=== PATIENT | female | born 1950 | race Native Hawaiian/Other Pacific Islander ===

== ENCOUNTER 2017-05-23 21:58 | Observation (INO) | payer SELFPAY ==
[2017-05-23 22:19] VITALS: RESP 18; BMI 29.2
--- NOTE | 2017-05-23 23:11 | ED PDOC ---
Arrival/HPI <Vishnu Colmean - Last Filed: 05/24/17 00:01> - General Historian: Patient <Florencia Rodas - Last Filed: 05/24/17 00:34> - General Chief Complaint: Dizziness/Lightheaded Time Seen by Provider: 05/23/17 22:37 - History of Present Illness Narrative History of Present Illness (Text): 05/23/17 22:52 66yo female with PMhx of hypertension biba for syncopal episode. Patient notes that she suddenly became dizzy while trying to seat, and then had a syncopal episode. She notes that she was dizzy herself, with no spinning sensation. She notes that she did not hit her head anywhere. The family member by the bedside states they caught and held her, then she gently slid to a seating position. + Nausea. Patient denies a previous history. She notes that she recently came to the [facility] last week from [facility]. She denies any focal weakness, headache, visual changes, chest pain, SOB, vomiting, recent URI symptoms. tinnitus, diaphoresis, LE edema, calf pain, any other complaint. (Florencia Rodas A) Past Medical History - Provider Review Nursing Documentation Reviewed: Yes - Cardiac Hx Hypertension: Yes - Pulmonary Hx Respiratory Disorders: No - Neurological Hx Neurological Disorder: No - HEENT Hx HEENT Disorder: No - Renal Hx Renal Disorder: No - Endocrine/Metabolic Hx Endocrine Disorders: No - Hematological/Oncological Hx Blood Disorders: No - Integumentary Hx Dermatological Disorder: No - Musculoskeletal/Rheumatological Hx Musculoskeletal Disorders: No - Gastrointestinal Hx Gastrointestinal Disorders: No - Genitourinary/Gynecological Hx Genitourinary Disorders: No - Psychiatric Hx Psychophysiologic Disorder: No Hx Substance Use: No <Florencia Rodas - Last Filed: 05/24/17 00:34> Family/Social History - Physician Review Nursing Documentation Reviewed: Yes Family/Social History: Unknown Family HX Smoking Status: Never Smoked Hx Alcohol Use: No Hx Substance Use: No <Florencia Rodas - Last Filed: 05/24/17 00:34> Allergies/Home Meds <Vishnu Coleman - Last Filed: 05/24/17 00:01> <Florencia Rodas A - Last Filed: 05/24/17 00:34> Allergies/Adverse Reactions: Allergies Penicillins Allergy (Verified 05/23/17 22:19) RASH Home Medications: Home Meds Medication Instructions Recorded Confirmed NIFEdipine ER [Nifedipine ER] 60 mg PO DAILY 05/23/17 05/23/17 Terazosin [Hytrin] 5 mg PO DAILY 05/23/17 05/23/17 Review of Systems - Physician Review All systems were reviewed & negative as marked: Yes - Review of Systems Constitutional: Normal Eyes: Normal ENT: Normal Respiratory: Normal Cardiovascular: Normal Gastrointestinal: Normal Genitourinary Female: Normal Musculoskeletal: Normal Skin: Normal Neurological: absent: Headache, Dizziness (syncope), Focal Weakness, Speech Changes, Facial Droop Endocrine: Normal Hemo/Lymphatic: Normal Psychiatric: Normal <Diru,Happiness A - Last Filed: 05/24/17 00:34> Physical Exam Vital Signs Reviewed: Yes Temperature: Afebrile Blood Pressure: Normal Pulse: Regular Respiratory Rate: Normal Appearance: Positive for: Well-Appearing, Non-Toxic, Comfortable Pain Distress: None Mental Status: Positive for: Alert and Oriented X 3 - Systems Exam Head: Present: Atraumatic, Normocephalic Pupils: Present: PERRL Extroacular Muscles: Present: EOMI Conjunctiva: Present: Normal Mouth: Present: Moist Mucous Membranes Neck: Present: Normal Range of Motion Respiratory/Chest: Present: Clear to Auscultation, Good Air Exchange. No: Respiratory Distress, Accessory Muscle Use Cardiovascular: Present: Regular Rate and Rhythm, Normal S1, S2. No: Murmurs Abdomen: Present: Normal Bowel Sounds. No: Tenderness, Distention, Peritoneal Signs Back: Present: Normal Inspection Upper Extremity: Present: Normal Inspection. No: Cyanosis, Edema Lower Extremity: Present: Normal Inspection. No: Edema Neurological: Present: GCS=15, CN II-XII Intact, Speech Normal, Motor Func Grossly Intact, Normal Sensory Function, Normal Cerebellar Funct, Memory Normal , Normal 2Pt Descrimination, Other (No focal neurological deficit) Skin: Present: Warm, Dry, Normal Color. No: Rashes Psychiatric: Present: Alert, Oriented x 3, Normal Insight, Normal Concentration <Diru,Happiness A - Last Filed: 05/24/17 00:34> Vital Signs Temp Pulse Resp BP Pulse Ox 05/23/17 22:18 97.4 F L 98 H 18 128/60 98 Medical Decision Making <Vishnu Coleman - Last Filed: 05/24/17 00:01> <Florencia Rodas - Last Filed: 05/24/17 00:34> ED Course and Treatment: 05/23/17 23:46 PT in ED for stated history. she had no focal neurological deficit in ED. Hypokalmeia was noted with no significant EKG changes. Potassium was repleted in ED. Mild Cr elevation was noted, likely secondary to hydration. EKG sinus luis eduardo with prolonged QT @58bpm CXR Pending Head Pending Case was DW Dr. Montoya while he was in ED and he accepted pt for admission to r/o possible cardiogenic cause. Result and plan was DW both pt and her family members and they agreed. 05/24/17 00:33 IMPRESSION: 1. Nonspecific white matter changes. Acute infarction may be CT occult within first 24 hours. If a focal deficit persists, consider followup CT or MRI for further evaluation. 2. Sinus disease. 3. Incidental/non-acute findings are described above. (Florencia Rodas) - Lab Interpretations Lab Results: 05/23/17 22:34 05/23/17 22:33 Lab Results 05/23/17 22:34: WBC 12.6 H, RBC 4.46, Hgb 12.7, Hct 37.4, MCV 83.9, MCH 28.5, MCHC 34.0, RDW 12.8, Plt Count 189, MPV 9.9, Gran % 88.8 H, Lymph % (Auto) 6.0 L , [place] % (Auto) 5.1, Eos % (Auto) 0.0 L, Baso % (Auto) 0.1, Gran # 11.21 H, Lymph # 0.8 L, [place] # 0.7 H, Eos # 0.0, Baso # 0.01 05/23/17 22:33: Sodium 141, Potassium 2.9 L*, Chloride 105, Carbon Dioxide 24, Anion Gap 15, BUN 25 H, Creatinine 1.5 H, Est GFR ( Amer) 42, Est GFR ( Non-Af Amer) 35, Random Glucose 172 H, Calcium 9.6, Magnesium 2.0, Total Bilirubin 0.4, AST 21, ALT 26, Alkaline Phosphatase 58, Lactate Dehydrogenase 401, Total Creatine Kinase 42, Troponin I < 0.01, Total Protein 7.8, Albumin 4.0 , Globulin 3.8, Albumin/Globulin Ratio 1.1 05/23/17 22:33: PT 12.3, INR 1.13 H, APTT 29.8 - RAD Interpretation Radiology Orders: 05/23/17 22:37 CHEST PORTABLE [RAD] Stat 05/23/17 22:38 HEAD W/O CONTRAST [CT] Stat - Medication Orders Current Medication Orders: Potassium Chloride (Potassium Chloride 20 Meq/100 Ml) 20 meq in 100 mls @ 50 mls/hr IVPB Q2H STA Stop: 05/24/17 01:21 Last Admin: 05/24/17 00:12 Dose: 50 mls/hr eMAR Start Stop Document 05/24/17 00:12 ANNA (Rec: 05/24/17 00:12 ANNA [id number]) Intravenous Solution Start Date 05/24/17 Start Time 00:12 End Date 05/24/17 End time 02:12 Total Infusion Time 120 Discontinued Medications Potassium Chloride (K-Dur 20 Meq Er Tab) 40 meq PO STAT STA Stop: 05/23/17 23:23 Last Admin: 05/24/17 00:12 Dose: 40 meq - PA / FIGURE CLERK / Resident Statement / has reviewed & agrees with the documentation as recorded. KASI has examined the patient and agrees with the treatment plan. <Vishnu Coleman - Last Filed: 05/24/17 00:01> Disposition/Present on Arrival <Vishnu Coleman - Last Filed: 05/24/17 00:01> - Present on Arrival Any Indicators Present on Arrival: No History of DVT/PE: No History of Uncontrolled Diabetes: No Urinary Catheter: No History of Decub. Ulcer: No History Surgical Site Infection Following: None - Disposition Have Diagnosis and Disposition been Completed?: Yes Disposition Time: 23:40 <Florencia Rodas - Last Filed: 05/24/17 00:34> - Disposition Diagnosis: Syncope, Hypokalemia, Dehydration Disposition: HOSPITALIZED Patient Problems: Current Active Problems Problem Status Onset Dehydration Acute Hypokalemia Acute Syncope Acute Condition: FAIR
[2017-05-23 23:22] LABS: ALB/GLOB RATIO 1.1 (1.1-1.8); ALKALINE PHOSPHATASE 58 U/L (38-126); ALT/SGPT 26 U/L (7-56); AST/SGOT 21 U/L (14-36); BILIRUBIN,TOTAL 0.4 mg/dL (0.2-1.3); BLOOD UREA NITROGEN 25 mg/dL (7-21); CALCIUM 9.6 mg/dL (8.4-10.5); CARBON DIOXIDE 24 mmol/L (21-33); CHLORIDE 105 mmol/L (98-107); GFR AFRICAN-AMERICAN 42; GLUCOSE,RANDOM 172 mg/dL (70-110); POTASSIUM 2.9 mmol/L (3.6-5.0); SODIUM 141 mmol/L (132-148); TOTAL PROTEIN 7.8 g/dL (5.8-8.3)
[2017-05-23] MEDS ORDERED: Potassium Chloride 20 mEq ER Tab PO STA (23:22)
[2017-05-23 23:26] LABS: TROPONIN I < 0.01 ng/mL
[2017-05-23 23:50] LABS: INR 1.13 (0.93-1.08); PARTIAL THROMBOPLASTIN TIME 29.8 Seconds (25.1-36.5)
[2017-05-24 00:05] LABS: BASO # 0.01 K/mm3 (0.0-2.0); BASO % 0.1 % (0.0-3.0); GRAN # 11.21 (1.4-6.5); GRAN % 88.8 % (50.0-68.0); HEMATOCRIT 37.4 % (36.0-48.0); LYMPH # 0.8 (1.2-3.4); MEAN CELL VOLUME 83.9 fl (80.0-105.0); MEAN CORPUSCULAR HEMOGLOBIN 28.5 pg (25.0-35.0); MEAN PLATELET VOLUME 9.9 fl (7.0-11.0); MONO # 0.7 (0.1-0.6); MONO % 5.1 % (1.0-6.0); RED CELL DISTRIBUTION WIDTH 12.8 % (11.5-14.5); WHITE BLOOD COUNT 12.6 10^3/ul (4.5-11.0)
--- NOTE | 2017-05-24 00:08 | CT ---
EXAM: CT Head Without Intravenous Contrast CLINICAL HISTORY: 66 years old, female; Signs and symptoms; Syncope and collapse TECHNIQUE: Axial computed tomography images of the head/brain without intravenous contrast. All CT scans at this facility use one or more dose reduction techniques, viz.: automated exposure control; ma/kV adjustment per patient size (including targeted exams where dose is matched to indication; i.e. head); or iterative reconstruction technique. COMPARISON: No relevant prior studies available. FINDINGS: Brain: Mild atrophy. No intracranial hemorrhage. No mass. Several scattered foci of decreased attenuation within periventricular/subcortical white matter. Probable chronic lacunar infarcts within basal ganglia. No definite edema. Ventricles: No hydrocephalus. Bones/joints: No acute fracture. Soft tissues: Unremarkable. Sinuses: Small air-fluid levels within maxillary sinuses. Mucus within RIGHT sphenoid sinus. Mastoid air cells: No mastoid effusion. Orbits: Unremarkable as visualized. IMPRESSION: 1. Nonspecific white matter changes. Acute infarction may be CT occult within first 24 hours. If a focal deficit persists, consider followup CT or MRI for further evaluation. 2. Sinus disease. 3. Incidental/non-acute findings are described above.
--- NOTE | 2017-05-24 00:45 | CP.PCM.HP ---
History of Present Illness - History of Present Illness History of Present Illness: CC: dizziness Subjective: HPI: Patient is a 66 year old female with a past medical history of hypertension who presents to the emergency department via EMS for evaluation and treatment of dizziness which began today after taking one dose of procardia in the morning and one dose of terazosin in the evening. Patients family is at bedside. Patient is visiting from the [facility]. She normally takes lopressor to control her BP however she was changed to the procardia/terazosin regimen today by her new pmd. As per family, the patient began feeling dizzy in the PM and was gently placed on the floor. Family and patient deny LOC, head trauma, or any shaking of extremities/ biting of the tongue. Denies recent sick contacts. Patient denies intractable headache, fever, chills, blurry vision, ringing in the ears, chest pain, shortness of breath, abdominal pain, nausea, vomiting, diarrhea, constipation, and urinary symptoms. ROS: 12 point review of systems negative except as indicated in HPI PMHx: HTN PSHx: None Allergies- penicillin- develops pruritis Family Hx: noncontributory Social Hx: denies ETOH use, tobacco use, illicit drug use Medications: Please see medication reconciliation PMD during visit to Priya: Dr. Chaudhary in [facility] during visit to Priya: [facility] in [place] Physical Examination: - Constitutional Appears: Non-toxic, No Acute Distress - Head Exam Head Exam: atraumatic, normocephalic - Eye Exam Eye Exam: Normal appearance, PERRL. absent: Scleral icterus - ENT Exam ENT Exam: Mucous Membranes Moist - Neck Exam Neck exam: Normal Inspection - Respiratory Exam Respiratory Exam: Normal Breathing Pattern - Cardiovascular Exam Cardiovascular Exam: +S1, +S2. absent: Gallop, JVD - GI/Abdominal Exam GI & Abdominal Exam: Normal Bowel Sounds, absent: Distended, Guarding, Pulsatile Mass, Rebound, Rigid - Extremities Exam Extremities exam: Negative for: calf tenderness - Neurological Exam Neurological exam: Patient is awake, alert, responds to verbal stimuli, answers questions appropriately, follows commands, and moves extremities past midline - Psychiatric Exam Psychiatric exam: Normal Affect, Normal Mood - Skin Skin Exam: warm and dry Assessment and Plan: Patient is a 66 year old female with a past medical history of hypertension who is admitted for evaluation and treatment of dizziness. Dizziness - likely secondary to new BP medications- will hold for now and monitor clinical symptoms closely - EKG reviewed and appreciated- sinus luis eduardo, HR 58 bpm, QTc 492, nonspecific ST abnormality - head CT- Nonspecific white matter changes; Small air-fluid levels within maxillary sinuses. Mucus within right sphenoid sinus. - high risk fall precautions - antivert prn - no prn zofran at this time due to prolonged QTc SIRS Criteria Met - not sepsis- no source (WBC elevated- likely reactive and HR > 90) - blood cultures x 2 pending - UA pending - IVF NS @ 100 [place] - creatinine and Bun reviewed, trended, and appreciated - avoid nephrotoxins - continue IVF NS @ 100 - consider nephrology consult pending patients clinical course Electrolyte Abnormality - hypokalemia- repleted by ED, mag WNL, and monitor closely via CMP - mag level ordered for AM Hx of Htn - hold home BP medications - hydralazine 5mg IV q6 prn SBP > 180, holding parameters- do not administer if HR is > 100 bp Prophylaxis - DVT ppx- subq heparin as per bairon score - GI ppx- famotidine Patient case discussed with and plan approved by attending physician. 05/24/17 00:26 Present on Admission - Present on Admission Any Indicators Present on Admission: No Past Patient History - Past Social History Smoking Status: Never Smoked - CARDIAC Hx Hypertension: Yes - PULMONARY Hx Respiratory Disorders: No - NEUROLOGICAL Hx Neurological Disorder: No - HEENT Hx HEENT Problems: No - RENAL Hx Chronic Kidney Disease: No - ENDOCRINE/METABOLIC Hx Endocrine Disorders: No - HEMATOLOGICAL/ONCOLOGICAL Hx Blood Disorders: No - INTEGUMENTARY Hx Dermatological Problems: No - MUSCULOSKELETAL/RHEUMATOLOGICAL Hx Musculoskeletal Disorders: No - GASTROINTESTINAL Hx Gastrointestinal Disorders: No - GENITOURINARY/GYNECOLOGICAL Hx Genitourinary Disorders: No - PSYCHIATRIC Hx Psychophysiologic Disorder: No Hx Substance Use: No - SURGICAL HISTORY Hx Surgeries: No Meds Allergies/Adverse Reactions: Allergies Allergy/AdvReac Type Severity Reaction Status Date / Time Penicillins Allergy RASH Verified 05/23/17 22:19 Results - Vital Signs Recent Vital Signs: Last Vital Signs Temp 97.4 F L 05/23/17 22:18 Pulse 98 H 05/23/17 22:18 Resp 18 05/23/17 22:18 BP 128/60 05/23/17 22:18 Pulse Ox 98 05/23/17 22:18 - Labs Result Diagrams: 05/23/17 22:34 05/23/17 22:33
[2017-05-24] MEDS ORDERED: Sodium Chloride 0.9% 1,000 ML IV SCH (01:00)
[2017-05-24 06:48] VITALS: BP 120/64; PULSE 77; TEMP 97.5; O2SAT 97
[2017-05-24 09:23] LABS: BASO # 0.01 K/mm3 (0.0-2.0); BASO % 0.1 % (0.0-3.0); EOS % 0.3 % (1.5-5.0); GRAN # 6.81 (1.4-6.5); GRAN % 78.3 % (50.0-68.0); LYMPH # 1.5 (1.2-3.4); LYMPH % 16.9 % (22.0-35.0); MEAN CELL VOLUME 85.4 fl (80.0-105.0); MEAN CORPUSCULAR HEMOGLOBIN 28.8 pg (25.0-35.0); MEAN CORPUSCULAR HGB CONC 33.7 g/dl (31.0-37.0); MEAN PLATELET VOLUME 10.6 fl (7.0-11.0); MONO # 0.4 (0.1-0.6); MONO % 4.4 % (1.0-6.0); RED CELL DISTRIBUTION WIDTH 12.9 % (11.5-14.5); WHITE BLOOD COUNT 8.7 10^3/ul (4.5-11.0)
--- NOTE | 2017-05-24 09:30 | RAD ---
HISTORY: admission COMPARISON: No prior. FINDINGS: LUNGS: No active pulmonary disease. PLEURA: No significant pleural effusion identified, no pneumothorax apparent. CARDIOVASCULAR: Heart appears borderline/ mildly enlarged. Aorta is ectatic and uncoiled. OSSEOUS STRUCTURES: Very minor degenerate changes both acromioclavicular joints VISUALIZED UPPER ABDOMEN: Normal. OTHER FINDINGS: None. IMPRESSION: No acute infiltrates.
[2017-05-24 09:48] LABS: BILIRUBIN,TOTAL 0.6 mg/dL (0.2-1.3); MAGNESIUM 2.1 mg/dL (1.7-2.2); POTASSIUM 3.7 mmol/L (3.6-5.0); TOTAL PROTEIN 7.1 g/dL (5.8-8.3)
--- NOTE | 2017-05-24 10:44 | CARD ---
APPROVED REPORT EKG Measurement Heart [id number] <Conclusion> Sinus bradycardia Nonspecific ST abnormality Prolonged QT Abnormal ECG
--- NOTE | 2017-05-24 13:59 | CP.PCM.DIS ---
<HailyAashishn - Last Filed: 05/24/17 16:15> Provider - Provider Date of Admission: 05/23/17 23:59 Attending physician: Radha Petit MD Primary care physician: NO PRIMARY CARE PROVIDER Time Spent in preparation of Discharge (in minutes): 45 Hospital Course - Lab Results Lab Results: Most Recent Lab Values WBC 8.7 10^3/ul (4.5-11.0) D 05/24/17 08:10 RBC 4.45 10^6/uL (3.5-6.1) 05/24/17 08:10 Hgb 12.8 g/dL (12.0-16.0) 05/24/17 08:10 Hct 38.0 % (36.0-48.0) 05/24/17 08:10 MCV 85.4 fl (80.0-105.0) 05/24/17 08:10 MCH 28.8 pg (25.0-35.0) 05/24/17 08:10 MCHC 33.7 g/dl (31.0-37.0) 05/24/17 08:10 RDW 12.9 % (11.5-14.5) 05/24/17 08:10 Plt Count 146 10^3/uL (120.0-450.0) 05/24/17 08:10 MPV 10.6 fl (7.0-11.0) 05/24/17 08:10 Gran % 78.3 % (50.0-68.0) H 05/24/17 08:10 Lymph % (Auto) 16.9 % (22.0-35.0) L 05/24/17 08:10 [place] % (Auto) 4.4 % (1.0-6.0) 05/24/17 08:10 Eos % (Auto) 0.3 % (1.5-5.0) L 05/24/17 08:10 Baso % (Auto) 0.1 % (0.0-3.0) 05/24/17 08:10 Gran # 6.81 (1.4-6.5) H 05/24/17 08:10 Lymph # 1.5 (1.2-3.4) 05/24/17 08:10 [place] # 0.4 (0.1-0.6) 05/24/17 08:10 Eos # 0.0 (0.0-0.7) 05/24/17 08:10 Baso # 0.01 K/mm3 (0.0-2.0) 05/24/17 08:10 PT 12.3 SECONDS (9.4-12.5) 05/23/17 22:33 INR 1.13 (0.93-1.08) H 05/23/17 22:33 APTT 29.8 Seconds (25.1-36.5) 05/23/17 22:33 Sodium 140 mmol/L (132-148) 05/24/17 08:10 Potassium 3.7 mmol/L (3.6-5.0) 05/24/17 08:10 Chloride 110 mmol/L (98-107) H 05/24/17 08:10 Carbon Dioxide 20 mmol/L (21-33) L 05/24/17 08:10 Anion Gap 15 (10-20) 05/24/17 08:10 BUN 27 mg/dL (7-21) H 05/24/17 08:10 Creatinine 1.3 mg/dl (0.7-1.2) H 05/24/17 08:10 Est GFR ( Amer) 49 05/24/17 08:10 Est GFR (Non-Af Amer) 41 05/24/17 08:10 Random Glucose 138 mg/dL (70-110) H 05/24/17 08:10 Calcium 9.0 mg/dL (8.4-10.5) 05/24/17 08:10 Magnesium 2.1 mg/dL (1.7-2.2) 05/24/17 08:10 Total Bilirubin 0.6 mg/dL (0.2-1.3) 05/24/17 08:10 AST 22 U/L (14-36) 05/24/17 08:10 ALT 19 U/L (7-56) 05/24/17 08:10 Alkaline Phosphatase 43 U/L (38-126) 05/24/17 08:10 Lactate Dehydrogenase 401 U/L (333-699) 05/23/17 22:33 Total Creatine Kinase 42 U/L (35-230) 05/23/17 22:33 Troponin I < 0.01 ng/mL 05/23/17 22:33 Total Protein 7.1 g/dL (5.8-8.3) 05/24/17 08:10 Albumin 3.5 g/dL (3.0-4.8) 05/24/17 08:10 Globulin 3.5 gm/dL 05/24/17 08:10 Albumin/Globulin Ratio 1.0 (1.1-1.8) L 05/24/17 08:10 - Hospital Course Hospital Course: 66 year old female with a past medical history of hypertension who presents to the emergency department via EMS for evaluation and treatment of dizziness which began today after taking one dose of procardia in the morning and one dose of terazosin in the evening. Patients family is at bedside. Patient is visiting from the [facility]. She normally takes lopressor to control her BP however she was changed to the procardia/terazosin regimen today by her new pmd. As per family, the patient began feeling dizzy in the PM and was gently placed on the floor. Family and patient deny LOC, head trauma, or any shaking of extremities/ biting of the tongue. Denies recent sick contacts. Patient denies intractable headache, fever, chills, blurry vision, ringing in the ears, chest pain, shortness of breath, abdominal pain, nausea, vomiting, diarrhea, constipation, and urinary symptoms. Patient was admitted subsequently for dizziness as a result. The patient's home blood pressure medications were held also. Patient was found to have hypokalemia at 2.9 and was repleted as a result. The patient had a chest xray done that was negative for pulmonary disease. The patient also had a head ct done that showed sinus disease and nonspecific white matter changes. Patient was examined this morning and determined to be medically stable. We discharged her with instructions to follow up with Dr. Chaudhary, the prescribing doctor within three days of discharge. The patient was also strongly advised to only restart home blood pressure medications until blood pressure is over 150/90. Discharge Exam - Eye Exam Eye Exam: EOMI, Normal appearance, PERRL. absent: Periorbital tenderness Pupil Exam: NORMAL ACCOMODATION, PERRL. absent: Irregular, Unequal - ENT Exam ENT Exam: Mucous Membranes Moist, Normal Exam, Normal Oropharynx - Respiratory Exam Respiratory Exam: Clear to PA & Lateral, NORMAL BREATHING PATTERN, UNREMARKABLE. absent: Decreased Breath Sounds, Rales, Rhonchi - Cardiovascular Exam Cardiovascular Exam: REGULAR RHYTHM, +S1, +S2. absent: Gallop, RRR, Rubs - GI/Abdominal Exam GI & Abdominal Exam: Normal Bowel Sounds, Unremarkable. absent: Hypoactive Bowel Sounds, Organomegaly, Pulsatile Mass - Extremities Exam Extremities exam: full ROM, normal inspection - Back Exam Back exam: NORMAL INSPECTION. absent: CVA tenderness (L), CVA tenderness (R), paraspinal tenderness - Neurological Exam Neurological exam: Alert, CN II-XII Intact, Normal Gait, Oriented x3 - Psychiatric Exam Psychiatric exam: Normal Affect, Normal Mood - Skin Skin Exam: Dry, Intact, Normal Color Discharge Plan - Follow Up Plan Condition: FAIR Disposition: HOME/ ROUTINE Instructions: Hypokalemia (DC), Hypokalemia (GEN), Dizziness (GEN) Additional Instructions: 1. Follow up with PMD DR. Cole in 3 days. 2. Stop all BP medications. Check BP at home . restart medications only SBP>150 DBP>90. 3. come back to ER for any new symptoms. Referrals: PCP,NO [Primary Care Provider] - <Radha Petit - Last Filed: 05/24/17 17:58> Provider - Provider Date of Admission: 05/23/17 23:59 Attending physician: Radha Petit MD Primary care physician: BRIGHT PRIMARY CARE PROVIDER Hospital Course - Lab Results Lab Results: Most Recent Lab Values WBC 8.7 10^3/ul (4.5-11.0) D 05/24/17 08:10 RBC 4.45 10^6/uL (3.5-6.1) 05/24/17 08:10 Hgb 12.8 g/dL (12.0-16.0) 05/24/17 08:10 Hct 38.0 % (36.0-48.0) 05/24/17 08:10 MCV 85.4 fl (80.0-105.0) 05/24/17 08:10 MCH 28.8 pg (25.0-35.0) 05/24/17 08:10 MCHC 33.7 g/dl (31.0-37.0) 05/24/17 08:10 RDW 12.9 % (11.5-14.5) 05/24/17 08:10 Plt Count 146 10^3/uL (120.0-450.0) 05/24/17 08:10 MPV 10.6 fl (7.0-11.0) 05/24/17 08:10 Gran % 78.3 % (50.0-68.0) H 05/24/17 08:10 Lymph % (Auto) 16.9 % (22.0-35.0) L 05/24/17 08:10 [place] % (Auto) 4.4 % (1.0-6.0) 05/24/17 08:10 Eos % (Auto) 0.3 % (1.5-5.0) L 05/24/17 08:10 Baso % (Auto) 0.1 % (0.0-3.0) 05/24/17 08:10 Gran # 6.81 (1.4-6.5) H 05/24/17 08:10 Lymph # 1.5 (1.2-3.4) 05/24/17 08:10 [place] # 0.4 (0.1-0.6) 05/24/17 08:10 Eos # 0.0 (0.0-0.7) 05/24/17 08:10 Baso # 0.01 K/mm3 (0.0-2.0) 05/24/17 08:10 PT 12.3 SECONDS (9.4-12.5) 05/23/17 22:33 INR 1.13 (0.93-1.08) H 05/23/17 22:33 APTT 29.8 Seconds (25.1-36.5) 05/23/17 22:33 Sodium 140 mmol/L (132-148) 05/24/17 08:10 Potassium 3.7 mmol/L (3.6-5.0) 05/24/17 08:10 Chloride 110 mmol/L (98-107) H 05/24/17 08:10 Carbon Dioxide 20 mmol/L (21-33) L 05/24/17 08:10 Anion Gap 15 (10-20) 05/24/17 08:10 BUN 27 mg/dL (7-21) H 05/24/17 08:10 Creatinine 1.3 mg/dl (0.7-1.2) H 05/24/17 08:10 Est GFR ( Amer) 49 05/24/17 08:10 Est GFR (Non-Af Amer) 41 05/24/17 08:10 Random Glucose 138 mg/dL (70-110) H 05/24/17 08:10 Calcium 9.0 mg/dL (8.4-10.5) 05/24/17 08:10 Magnesium 2.1 mg/dL (1.7-2.2) 05/24/17 08:10 Total Bilirubin 0.6 mg/dL (0.2-1.3) 05/24/17 08:10 AST 22 U/L (14-36) 05/24/17 08:10 ALT 19 U/L (7-56) 05/24/17 08:10 Alkaline Phosphatase 43 U/L (38-126) 05/24/17 08:10 Lactate Dehydrogenase 401 U/L (333-699) 05/23/17 22:33 Total Creatine Kinase 42 U/L (35-230) 05/23/17 22:33 Troponin I < 0.01 ng/mL 05/23/17 22:33 Total Protein 7.1 g/dL (5.8-8.3) 05/24/17 08:10 Albumin 3.5 g/dL (3.0-4.8) 05/24/17 08:10 Globulin 3.5 gm/dL 05/24/17 08:10 Albumin/Globulin Ratio 1.0 (1.1-1.8) L 05/24/17 08:10 Attending/Attestation - Attestation I have personally seen and examined this patient.: Yes I have fully participated in the care of the patient.: Yes I have reviewed all pertinent clinical information, including history, physical exam and plan: Yes Notes (Text): 05/24/17 17:55 attending note; Patient seen and examined with resident. Patient is a 66-year-old female admitted with dizziness and hypokalemia. Patient was recently started on hytrin and Procardia XL. Possible orthostatic hypotension from Hytrin. Currently blood pressure is normal. No orthostatic changes. Ambulating fine. physical therapy evaluation appreciated. Patient is strongly advised to stop blood pressure medication. CT head is negative for any acute infarct. Patient is visiting from [facility]. patient had recent cardiac workup within 2 months. Case discussed with patient's Sister a nurse in detail. Family is requesting discharge home today. Advised to come back to the ER for any new symptoms. Family is aware. Diagnosis; Dizziness Orthostatic hypotension
== END 2017-05-24 13:22 | disposition home or self-care (01) ==
LOC: ED 21:58 → ERH 23:59 → 3RSO 05-24 02:08
PROVIDERS: ADMIT Hospitalist; ATTEND Internal Medicine
DX: I95.1 Orthostatic hypotension (principal); E86.0 Dehydration; E87.6 Hypokalemia; I10 Essential (primary) hypertension; N17.9 Acute kidney failure, unspecified; R65.10 Systemic inflammatory response syndrome (SIRS) of non-infectious origin without acute organ dysfunction; Z79.899 Other long term (current) drug therapy; Z88.0 Allergy status to penicillin; R40.2412 Glasgow coma scale score 13-15, at arrival to emergency department
CPT/HCPCS: 36415; 70450; 71010; 80053; 82550; 83615; 83735; 84484; 85025; 85610; 85730; 87040; 93005; 96365; 96366; 97116; 97161; 99284; G0378; G8978; G8979; G8980; J1644; J3480; J7040